=== PATIENT | female | born 1940 | race Caucasian/White ===

== ENCOUNTER → 2016-11-25 | Outpatient (CLI) | payer MEDICARE, OTHER ==
[~2016-11-25] MED LIST: ARTHRITIS PAIN650 M1 PO; CARAFATE1 GM PO; CENTRUM SILVER1 EAC1 PO; FLECAINIDE ACET50 MG PO; GEMFIBROZIL600 MG PO; MAALOX DPS30 ML PO; NITROSTAT0.4 MG SL; POTASSIUM OTC PO; PROTONIX40 MG PO; STOOL SOFTENER1 EACH PO; SURFAK240 MG PO; TYLENOL EXTRA500 MG PO; TYLENOL325 MG PO
== END | disposition home or self-care (01) ==
LOC: RAD.S 08:52
DX: Z12.31 Encounter for screening mammogram for malignant neoplasm of breast (principal)